=== PATIENT | male | born 1945 | race Two or more races ===

== ENCOUNTER 2016-09-13 06:54 | Emergency (ER) | payer BC, MEDICARE ==
[2016-09-13] MEDS ORDERED: ASPIRIN 81 MG TABLET, CHEWABLE PO ONE ×2 (07:02→07:03)
--- NOTE | 2016-09-13 07:27 | EKG REPORT ---
SEVERITY:- ABNORMAL ECG - SINUS RHYTHM FIRST DEGREE AV BLOCK BORDERLINE LEFT AXIS DEVIATION CONSIDER INFERIOR INFARCT NONSPECIFIC T ABNORMALITIES, LATERAL LEADS : Confirmed by: Sergio Conn MD 13-Sep-2016 07:25:31
--- NOTE | 2016-09-13 07:39 | ER Document Report ---
ED General - General Chief Complaint: Chest Pain Stated Complaint: CARDIAC LIKE SYMPTOMS Time seen by provider: 07:31 Mode of Arrival: Ambulatory Information source: Patient Notes: 71-year-old male presents to ED for right upper quadrant to chest pain. He states that it feels similar to when he had his heart attack 2 years ago but his lower to the right side of his chest. He states he took 2 nitros at home which relieved the pain. He said some of the pain is coming back. He said the second time the pain pain came back it was in the right flank around to the right upper quadrant then into the chest. States he had a good bowel movement denies any nausea or vomiting or fever. States 2 years ago when he had his heart attack they did one stent. TRAVEL OUTSIDE OF THE [place] IN LAST 30 DAYS: No - HPI Onset: Yesterday Onset/Duration: Intermittent Quality of pain: Pressure, Sharp Severity: Moderate Pain Level: 3 Associated symptoms: Chest pain - Right flank right upper quadrant radiating to chest. denies: Nonproductive cough, Productive cough, Fever, Nausea, Vomiting, Shortness of breath, Sweating Exacerbated by: Denies, Standing Similar symptoms previously: Yes Recently seen / treated by doctor: No - Related Data Allergies/Adverse Reactions: No Known Allergies Allergy (Unverified 09/13/16 06:56) Past Medical History - General Information source: Patient - Social History Smoking Status: Former Smoker Cigarette use (# per day): No Chew tobacco use (# tins/day): No Smoking Education Provided: No Frequency of alcohol use: Social - 1-2 a day Drug Abuse: None Occupation: psychologist [place] Lives with: Family Family History: Reviewed & Not Pertinent Patient has suicidal ideation: No Patient has homicidal ideation: No - Past Medical History Cardiac Medical History: Reports: Hx Coronary Artery Disease, Hx Hypercholesterolemia, Hx Hypertension Pulmonary Medical History: Reports: None EENT Medical History: Reports: None Neurological Medical History: Reports: None Endocrine Medical History: Reports: None Renal/ Medical History: Reports: None Malignancy Medical History: Reports None GI Medical History: Reports: None Musculoskeltal Medical History: Reports None Skin Medical History: Reports None Psychiatric Medical History: Reports: None Traumatic Medical History: Reports: None Infectious Medical History: Reports: None Past Surgical History: Reports: Hx Cardiac Catheterization, Hx Coronary Stent Review of Systems - Review of Systems Constitutional: No symptoms reported EENT: No symptoms reported Cardiovascular: Chest pain. denies: Dizziness, Lightheaded Respiratory: No symptoms reported. denies: Short of breath Gastrointestinal: Abdominal pain. denies: Nausea, Vomiting Genitourinary: No symptoms reported Male Genitourinary: No symptoms reported Musculoskeletal: No symptoms reported Skin: No symptoms reported Hematologic/Lymphatic: No symptoms reported Neurological/Psychological: No symptoms reported Physical Exam - Vital signs Vitals: Temp Pulse Resp BP Pulse Ox 97.7 F 70 15 151/81 H 98 09/13/16 06:56 09/13/16 06:56 09/13/16 06:56 09/13/16 06:56 09/13/16 06:56 Course - Re-evaluation Re-evalutation: 09/13/16 12:45 Discussed ultrasound and x-ray with Dr. Portillo and with Dr. Morales. A written report of the x-ray and ultrasound as well as a DVD of the x-ray and ultrasound given to patient. Written report of his labs given to patient he states his doctor is out of state and he will need to follow-up with him. Discussed all these with the patient and his and told him that there is some thickening to the wall of the gallbladder but no inflammation no signs of infection no gallstones. Patient stated he would call his primary doctor and schedule an appointment as scheduled, often going for get this appointment in the next couple weeks. - Vital Signs Vital signs: Temp Pulse Resp BP Pulse Ox 97.7 F 70 15 151/81 H 99 09/13/16 06:56 09/13/16 06:56 09/13/16 06:56 09/13/16 06:56 09/13/16 08:00 - Laboratory Result Diagrams: 09/13/16 07:55 09/13/16 07:55 Laboratory results interpreted by me: 09/13/16 09/13/16 07:55 07:55 Plt Count 110 L Glucose 200 H Total Bilirubin 1.6 H - Diagnostic Test Radiology reviewed: Image reviewed, Reports reviewed - Consults Sindi Time consulted: 12:29 Reason for consultation: 09/13/16 12:29 Patient had some right upper quadrant abdominal pain the ultrasound says that he has a gallbladder wall that is slightly thickened no gallstones and no Márquez 's sign CBC is normal, liver enzymes and lipase are normal, consult to Dr. Portillo and the second cardiac enzymes are normal we will discharge patient home Discharge - Discharge Clinical Impression: Right upper quadrant abdominal pain, Chest pain of uncertain etiology Condition: Stable Disposition: HOME, SELF-CARE Instructions: Evaluation of Upper Abdominal Pain ([facility]) Additional Instructions: CHEST PAIN OF UNCLEAR CAUSE: The exact cause of your chest pain isn't clear. Fortunately, there is no evidence of a dangerous medical condition. Further testing may be required to find the source of the pain. Most often, we find that this pain is coming from the chest wall -- the muscles or rib joints in the chest. But chest pain can come from the lung and lung lining, the esophagus, the heart valves or heart lining, and even the stomach or gallbladder. Rest. Eat lightly until the pain is gone. We may prescribe medicine for pain and inflammation. You should call the physician immediately if the pain radiates to the shoulder, jaw or arms; if you start to run a fever or develop a cough; or if you develop shortness of breath, or other new or alarming symptoms. NORMAL EXAM AND WORKUP: At this time, your examination and workup show no significant abnormality. No significant abnormal physical findings were noted. All laboratory, EKG, and imaging (x-ray, CT scans, ultrasound) studies that were ordered show no significant abnormality. Although your examination and all studies that were ordered showed no significant abnormal finding, there are no examinations and no studies that are 100% accurate. There is always the possibility that some abnormality could exist and not be detected with physical examination or within the limits and capabilities of laboratory and other studies. You should return or follow up as you were instructed on your visit today for further evaluation if your symptoms do not resolve. ASPIRIN: Aspirin has been shown to have a beneficial effect on blood circulation by reducing the clotting effect of platelets in the blood. These beneficial effects can be achieved by taking just a single baby (81 mg) aspirin a day. It is recommended that any person over the age of forty take a single baby aspirin every day for heart and brain circulation, unless you are allergic to aspirin or have some significant bleeding disorder. It is strongly recommended that people who have proven cardiac or blood circulation disturbances should take a baby aspirin every day. NITRATES: Nitroglycerin and related longer-acting nitrate medications are used to prevent or treat attacks of angina. These medicines dilate blood vessels, decreasing the work of the heart, and improving its supply of oxygen. Many different forms are available, including sublingual tablets (used under the tongue), sprays, skin patches, and long-acting pills. If the particular form of medication you have been given is not working well for you, contact your doctor. Long-acting forms: Take exactly as prescribed. Sudden stopping of medication can provoke increased attacks. Sublingual tabs or spray: A headache will usually occur with use. Sit or lie while waiting for the pain to go away. If angina doesn't respond to three doses (five minutes apart), call for emergency assistance. A copy of your ultrasound chest x-ray and labs were given to you to take to your primary doctor for follow-up as well as a CD of your x-ray and ultrasound. Please follow-up with your primary doctor in your hometown within the next couple weeks. FOLLOW-UP CARE: If you have been referred to a physician for follow-up care, call the physician s office for an appointment as you were instructed or within the next two days. If you experience worsening or a significant change in your symptoms, notify the physician immediately or return to the Emergency Department at any time for re-evaluation. Please complete the patient's satisfaction survey if you get one and return. If you do not receive a survey you can go to [facility] website [email or web address] and place your comments about your very good care. Thank you very much. It was a pleasure be in your medical provider today. Forms: Elevated Blood Pressure, Return to Work
[2016-09-13 08:07] LABS: ABSOLUTE EOSINOPHILS # (AUTO) 0.1 10^3/uL (0.0-0.6); ABSOLUTE LYMPHOCYTES (AUTO) 1.2 10^3/uL (0.5-4.7); ABSOLUTE MONOCYTES (AUTO) 0.4 10^3/uL (0.1-1.4); ABSOLUTE NEUT (AUTO) 3.9 10^3/uL (1.7-8.2); BASOPHILS % (AUTO) 0.6 % (0-2); EOSINOPHILS % (AUTO) 0.9 % (0-6); HEMOGLOBIN 16.1 g/dL (13.5-17.0); HGB HCT DIFFERENCE 3.3; LYMPHOCYTES % (AUTO) 20.8 % (13-45); MEAN CORPUSCULAR HEMOGLOBIN 33.4 pg (27.0-33.4); MEAN CORPUSCULAR HGB CONC 35.8 g/dL (32.0-36.0); MEAN CORPUSCULAR VOLUME 93 fl (80-97); MONOCYTES % (AUTO) 7.4 % (3-13); RED BLOOD COUNT 4.83 10^6/uL (4.35-5.55); RED CELL DISTRIBUTION WIDTH 13.2 % (11.5-14.0); SEGMENTED NEUTROPHILS % (AUTO) 70.3 % (42-78); WHITE BLOOD COUNT 5.6 10^3/uL (4.0-10.5)
[2016-09-13 08:26] LABS: ALANINE AMINOTRANSFERASE 72 U/L (21-72); ALBUMIN 4.7 g/dL (3.5-5.0); ALKALINE PHOSPHATASE 48 U/L (38-126); ANION GAP 12 (5-19); ASPARTATE AMINO TRANSFERASE 44 U/L (17-59); BILIRUBIN,TOTAL 1.6 mg/dL (0.2-1.3); BLOOD UREA NITROGEN 16 mg/dL (7-20); CALCIUM 9.6 mg/dL (8.4-10.2); CARBON DIOXIDE 27 mmol/L (22-30); CHLORIDE 103 mmol/L (98-107); CREATINE KINASE 61 U/L (55-170); CREATININE RESULT 0.88 mg/dL (0.52-1.25); GLUCOSE 200 mg/dL (75-110); LIPASE 143.7 U/L (23-300); MAGNESIUM 1.9 mg/dL (1.6-2.3); POTASSIUM 4.6 mmol/L (3.6-5.0); SODIUM 141.8 mmol/L (137-145); TOTAL PROTEIN 7.1 g/dL (6.3-8.2)
[2016-09-13 08:41] LABS: CREATINE KINASE MB 0.76 ng/mL (<4.55)
[2016-09-13 08:46] LABS: TROPONIN I < 0.012 ng/mL
[2016-09-13 12:52] VITALS: BP 148/79
== END 2016-09-13 12:59 | disposition home or self-care (01) ==
LOC: ER 06:54
DX: R10.11 Right upper quadrant pain (principal); R07.9 Chest pain, unspecified; I25.2 Old myocardial infarction; Z87.891 Personal history of nicotine dependence
CPT/HCPCS: 36415; 71020; 76705; 80053; 82550; 82553; 83690; 83735; 84484; 85025; 93005; 93010; 99285